=== PATIENT | female | born 1975 | race Caucasian/White ===

== ENCOUNTER → 2016-11-10 | Outpatient (CLI) | payer OTHER ==
[~2016-11-10] MED LIST: ALLEGRA ALLERG180 MG PO; CENTRUM SILVER1 EAC4 PO; ELAVIL 25 MG TA25 MG PO; IMITREX100 MG PO; LEVAQUIN TAB 2250 MG PO; MEGA BIOTIN10000 MCG PO; NAPROXEN500 MG PO; NEURONTIN 400400 MG PO; OMEPRAZOLE20 M1 PO; OXYCODONE HCL20 MG PO; PROMETHAZINE HC25 M1 PO; ROBAXIN 750 MG750 MG PO; SYNTHROID200 MCG PO; TRAZODONE HCL150 MG PO; VALIUM 5 MG TAB5 MG PO; ZOLOFT100 MG PO; ZYRTEC10 MG PO
== END ==
LOC: RAD 11:21
DX: M25.561 Pain in right knee (principal)
CPT/HCPCS: 73562

== ENCOUNTER 2020-08-10 10:00 | Emergency (ER) | payer OTHER ==
[~2020-08-10 10:00] MED LIST changes: +CLARITIN10 M2 PO; +FLONASE 0.05% N16 GM; +PHENERGAN 12.12.5 M1 PO
[2020-08-10 11:59] LABS: HEMOGLOBIN 13.9 gm/dl (12.3-15.3); RED BLOOD COUNT 4.91 M/UL (4.00-5.10); WHITE BLOOD COUNT 7.8 K/UL (4.5-11.0)
[2020-08-10 12:19] LABS: BUN/CREATININE RATIO 16 (0-10)
== END 2020-08-10 17:09 | disposition short-term general hospital (02) ==
LOC: ER1 10:00
PROVIDERS: Emergency Medicine
DX: R10.33 Periumbilical pain (principal); R19.8 Other specified symptoms and signs involving the digestive system and abdomen; R50.9 Fever, unspecified; E66.9 Obesity, unspecified; Z98.84 Bariatric surgery status; Z98.890 Other specified postprocedural states; Z90.49 Acquired absence of other specified parts of digestive tract; Z88.0 Allergy status to penicillin; Z20.822 Contact with and (suspected) exposure to COVID-19
CPT/HCPCS: 36415; 71045; 80053; 83605; 83690; 84703; 85025; 87040; 93005; 96374; 96375; 99284; J1335; J2405; U0002

== ENCOUNTER 2020-12-05 12:23 | Emergency (ER) | payer OTHER ==
[2020-12-05 13:07] LABS: HEMOGLOBIN 13.6 gm/dl (12.3-15.3); RED BLOOD COUNT 4.92 M/UL (4.00-5.10); WHITE BLOOD COUNT 11.7 K/UL (4.5-11.0)
[2020-12-05 13:39] LABS: BUN/CREATININE RATIO 23 (0-10)
[2020-12-05] MEDS ORDERED: CIPRO500 MG PO (14:53)
[2020-12-05] MEDS ORDERED: ONDANSETRON ODT4 MG SL (14:53)
[2020-12-05] MEDS ORDERED: FLOMAX 0.4 MG0.4 MG PO (14:53)
[2020-12-05] MEDS ORDERED: ENDOCET 5-3251 EACH PO ×2 (14:56→15:11)
== END 2020-12-05 15:16 | disposition home or self-care (01) ==
LOC: ER1 12:23
PROVIDERS: Physician Assistant
DX: N39.0 Urinary tract infection, site not specified (principal); E66.9 Obesity, unspecified; E03.9 Hypothyroidism, unspecified; Z87.442 Personal history of urinary calculi; Z90.710 Acquired absence of both cervix and uterus; Z90.49 Acquired absence of other specified parts of digestive tract; Z90.89 Acquired absence of other organs; Z88.0 Allergy status to penicillin; Z88.1 Allergy status to other antibiotic agents; Z88.8 Allergy status to other drugs, medicaments and biological substances
CPT/HCPCS: 80053; 81001; 83690; 84703; 85025; 87086; 96374; 96375; 99284; J1885; J2270; J2405; J7030

== ENCOUNTER 2021-02-12 07:36 | Emergency (ER) | payer OTHER ==
[~2021-02-12 07:36] MED LIST changes: +CIPRO500 MG PO; +ENDOCET 5-3251 EACH PO; +FLOMAX 0.4 MG0.4 MG PO; +ONDANSETRON ODT4 MG SL
[2021-02-12 08:19] LABS: HEMOGLOBIN 12.8 gm/dl (12.3-15.3); RED BLOOD COUNT 4.93 M/UL (4.00-5.10); WHITE BLOOD COUNT 6.9 K/UL (4.5-11.0)
[2021-02-12 08:34] LABS: BUN/CREATININE RATIO 16 (0-10)
== END 2021-02-12 16:02 | disposition other institution (70) ==
LOC: ER1 07:36
PROVIDERS: Emergency Medicine
DX: R13.10 Dysphagia, unspecified (principal); K02.9 Dental caries, unspecified; E03.9 Hypothyroidism, unspecified
CPT/HCPCS: 80053; 85025; 96374; 96375; 99284; J1100; J2270; J2405; J7030; Q9967

== ENCOUNTER 2021-03-17 12:21 | Emergency (ER) | payer OTHER ==
[2021-03-17] MEDS ORDERED: IBUPROFEN600 MG PO (17:10)
== END 2021-03-17 17:20 | disposition home or self-care (01) ==
LOC: ER1 12:21
DX: M17.12 Unilateral primary osteoarthritis, left knee (principal); M50.322 Other cervical disc degeneration at C5-C6 level; E66.9 Obesity, unspecified; Z90.49 Acquired absence of other specified parts of digestive tract; Z90.710 Acquired absence of both cervix and uterus
CPT/HCPCS: 72040; 73030; 73502; 73562; 73610; 73630; 93971; 99284

== ENCOUNTER 2021-09-30 21:54 | Emergency (ER) | payer OTHER ==
[~2021-09-30 21:54] MED LIST changes: +IBUPROFEN600 MG PO
[2021-09-30 23:06] LABS: HEMOGLOBIN 13.8 gm/dl (12.3-15.3); RED BLOOD COUNT 5.18 M/UL (4.00-5.10); WHITE BLOOD COUNT 13.3 K/UL (4.5-11.0)
[2021-09-30 23:26] LABS: BUN/CREATININE RATIO 15 (0-10)
[2021-10-01] MEDS ORDERED: ZOFRAN ODT 4 MG4 MG GT (00:37)
== END 2021-10-01 00:59 | disposition home or self-care (01) ==
LOC: ER1 21:54
PROVIDERS: Family Medicine
DX: R11.2 Nausea with vomiting, unspecified (principal); R19.7 Diarrhea, unspecified; Z20.822 Contact with and (suspected) exposure to COVID-19
CPT/HCPCS: 80053; 81001; 82607; 82746; 83540; 83550; 83690; 85025; 93005; 96374; 99284; J2405; U0003

== ENCOUNTER 2021-10-20 16:42 | Emergency (ER) | payer OTHER ==
[~2021-10-20 16:42] MED LIST changes: +ZOFRAN ODT 4 MG4 MG GT
[2021-10-20] MEDS ORDERED: CYCLOBENZAPRINE10 MG PO (21:42)
[2021-10-20] MEDS ORDERED: IBUPROFEN600 MG PO (21:42)
== END 2021-10-20 22:00 | disposition home or self-care (01) ==
LOC: ER1 16:42
DX: S39.012A Strain of muscle, fascia and tendon of lower back, initial encounter (principal); Z88.0 Allergy status to penicillin; Z88.8 Allergy status to other drugs, medicaments and biological substances; W19.XXXA Unspecified fall, initial encounter
CPT/HCPCS: 72100; 73562; 96372; 96374; 99283; J1885; J2270